=== PATIENT | male | born 1950 | race Caucasian/White ===

== ENCOUNTER 2021-01-14 04:06 | Emergency (ER) | payer OTHER ==
[~2021-01-14] VITALS: Ht 172.7 cm; Wt 78.0 kg
[2021-01-14] MEDS ORDERED: SODIUM CHLORIDE 0.9% 1,000 ML IV ONE (04:30)
[2021-01-14 05:17] LABS: HEMATOCRIT. 44.1 % (42.0-52.0); HEMOGLOBIN. 15.2 g/dL (14.0-18.0); MEAN CORPUSCULAR HEMOGLOBIN 31.4 pg (28.0-32.0); MEAN PLATELET VOLUME 7.8 fl (7.4-10.4); PLATELET 254 x1000/uL (130-400); RED BLOOD CELL COUNT 4.84 mill/uL (4.7-6.1)
[2021-01-14 05:19] LABS: CHLORIDE 110 mEq/L (98-107)
[2021-01-14 06:34] LABS: PLATELET ESTIMATE NORMAL
[2021-01-14] MEDS ORDERED: IOHEXOL-300 100 ML BOTTLE ONE (07:27)
[2021-01-14] MEDS ORDERED: LEVETIRACETAM 500MG PREMIX 100 ML IV ONE (08:30)
[2021-01-14] MEDS ORDERED: TRANEXAMIC ACID 1,000 MG/10 ML IV ONE (08:30)
[2021-01-14] MEDS: TRANEXAMIC ACID 1,000 MG in SODIUM CHLORIDE 0.9% 100 ML IV NR ×2 (08:53→08:57)
[2021-01-14 10:10] VITALS: BP 134/83
== END 2021-01-14 11:22 | disposition short-term general hospital (02) ==
LOC: ER 04:06
DX: S09.8XXA Other specified injuries of head, initial encounter (principal); S06.0X9A Concussion with loss of consciousness of unspecified duration, initial encounter; R58 Hemorrhage, not elsewhere classified; R07.9 Chest pain, unspecified; R00.0 Tachycardia, unspecified; V49.49XA Driver injured in collision with other motor vehicles in traffic accident, initial encounter; Y93.9 Activity, unspecified; Y92.410 Unspecified street and highway as the place of occurrence of the external cause
CPT/HCPCS: 36415; 70450; 70486; 71045; 71260; 72125; 74177; 80053; 85025; 93005; 96361; 96365; 96368; 99291; J1953; J7030; J7050; Q9967